=== PATIENT | male | born 1970 ===

== ENCOUNTER 2017-09-17 11:17 | Emergency (ER) | payer OTHER ==
[~2017-09-17] VITALS: Ht 172.7 cm; Wt 111.1 kg
[~2017-09-17 11:17] MED LIST: TIZANIDINE HCL2 MG PO
[2017-09-17] MEDS ORDERED: AVAPRO150 MG PO (11:24)
== END 2017-09-17 17:23 | disposition home or self-care (01) ==
LOC: ER 11:17
DX: B34.9 Viral infection, unspecified (principal); J11.1 Influenza due to unidentified influenza virus with other respiratory manifestations

== ENCOUNTER → 2023-11-29 06:37 | Outpatient (CLI) | payer OTHER ==
[2023-11-29 08:19] LABS: ALBUMIN 3.9 gm/dL (3.4-5.0); CALCIUM 9.5 mg/dL (8.5-10.1); CREATININE SERUM 0.87 mg/dL (0.70-1.30); GFR 91.44; PHOSPHOROUS 3.4 mg/dL (2.5-4.9); POTASSIUM 4.26 mEq/L (3.5-5.1)
== END | disposition home or self-care (01) ==
LOC: LAB 06:37
PROVIDERS: ATTEND Otolaryngology Otolaryngology/Facial Plastic Surgery
DX: R22.1 Localized swelling, mass and lump, neck (principal)

== ENCOUNTER → 2023-11-29 | Outpatient (CLI) | payer OTHER ==
[~2023-11-29] MED LIST changes: +AVAPRO150 MG PO
== END | disposition home or self-care (01) ==
LOC: TOM 07:30
PROVIDERS: ATTEND Otolaryngology Otolaryngology/Facial Plastic Surgery
DX: R22.1 Localized swelling, mass and lump, neck (principal)